=== PATIENT | female | born 1995 | race Caucasian/White ===

== ENCOUNTER 2019-07-04 16:24 | Emergency (ER) | payer MEDICAID ==
[~2019-07-04] VITALS: Ht 154.9 cm; Wt 55.0 kg
[~2019-07-04 16:24] MED LIST: IBUP100T36
[2019-07-04] MEDS ORDERED: LIDOCAINE HCL/PF 1% 10 MG/ML 5ML VIAL IJ ONE (19:00)
[2019-07-04] MEDS ORDERED: TETANUS, DIPHTHERIA, PERTUSSIS VAC/PF 0.5ML (>7YR OLD) IM ONE (19:00)
[2019-07-04] MEDS ORDERED: ACETAMINOPHEN 325MG TABLET PO ONE (19:00)
[2019-07-04] MEDS ORDERED: BACITRACIN ZINC OINT UDPKT TOP ONE (19:00)
[2019-07-04] MEDS ORDERED: IBUPROFEN 600MG TABLET PO ONE (19:00)
[2019-07-04 21:07] VITALS: BP 118/72
== END 2019-07-04 21:10 | disposition home or self-care (01) ==
LOC: ER 16:24
DX: S61.211A Laceration without foreign body of left index finger without damage to nail, initial encounter (principal); Z23 Encounter for immunization; W26.0XXA Contact with knife, initial encounter; Y93.89 Activity, other specified; Y92.89 Other specified places as the place of occurrence of the external cause; Y99.8 Other external cause status
CPT/HCPCS: 12001; 81025; 90471; 90715; 99283; J3490; Z7610

== ENCOUNTER 2019-07-18 16:01 | Emergency (ER) | payer MEDICAID ==
[~2019-07-18] VITALS: Ht 154.9 cm; Wt 65.0 kg
[2019-07-18 16:19] VITALS: BP 113/67
== END 2019-07-18 17:58 | disposition home or self-care (01) ==
LOC: ER 16:01
DX: Z48.02 Encounter for removal of sutures (principal)
CPT/HCPCS: 99281; Z7610